=== PATIENT | male | born 1990 | race Caucasian/White ===

== ENCOUNTER 2019-05-08 08:50 | Outpatient (CLI) | payer BC ==
--- NOTE | 2019-05-08 11:05 | RAD ---
THORACIC SPINE THREE VIEWS: HISTORY: Thoracic spine pain. FINDINGS: The thoracic vertebrae maintain normal height and alignment. No evidence of lytic or blastic process . Minimal wedging with anterior osteophytes in the lower thoracic and upper lumbar spine noted. Sup erior endplate deformities involving the T12 and T1 vertebra are documented on a prior MRI from 2013, resulting in mild loss of central and anterior height. These findings appear stable when compared t o that exam. POS: [facility]
== END 2019-05-08 08:51 | disposition home or self-care (01) ==
LOC: BICRAD 08:50
PROVIDERS: ATTEND Chiropractor
DX: M54.6 Pain in thoracic spine (principal); M99.18 Subluxation complex (vertebral) of rib cage; M79.10 Myalgia, unspecified site
CPT/HCPCS: 72070